=== PATIENT | female | born 1960 | race Caucasian/White ===

== ENCOUNTER 2019-06-13 11:58 | Day surgery (SDC) | payer BC ==
[~2019-06-13 11:58] MED LIST: Buffered Lidocaine 1% SYRIN* 1 ML/SYRINGE INTRADERM ONE; Dexamethasone IV* 4 MG/ML 1 ML (4 MG) IV SLOW PU ONE; Famotidine IV* 10 MG/ML 2 ML (20 mg) IV ONE; Lactated Ringers 1000 ML Bag* 1,000 ML IV SCH
[2019-06-13] MEDS ORDERED: Famotidine IV* 10 MG/ML 2 ML (20 mg) ONE (12:24)
[2019-06-13] MEDS ORDERED: Dexamethasone IV* 4 MG/ML 1 ML (4 MG) ONE (12:24)
[2019-06-13] MEDS ORDERED: Midazolam* 1 MG/ML 5 ML VIAL (5 MG) ONE (14:16)
[2019-06-13] MEDS ORDERED: Propofol* 10 MG/ML 20 ML BTL ONE ×2 (14:16→15:22)
[2019-06-13] MEDS ORDERED: Lidocaine 2% PF * 5 ML VIAL ONE (14:16)
[2019-06-13] MEDS ORDERED: fentaNYL* 50 MCG/ML 2 ML VIAL (100 MCG VIAL) ONE (14:16)
[2019-06-13] MEDS ORDERED: fentaNYL* 50 MCG/ML 2 ML VIAL (100 MCG VIAL) IV PRN (14:48)
[2019-06-13] MEDS ORDERED: Ondansetron INJ* 2 MG/ML VIAL IV PRN (14:48)
[2019-06-13] MEDS ORDERED: Acetaminophen TAB* 325 MG PO PRN (14:48)
[2019-06-13] MEDS ORDERED: oxyCODONE/Acetamin 5/325 MG* TAB PO PRN (14:48)
[2019-06-13] MEDS ORDERED: Naloxone* 0.4 MG/ML 1 ML VIAL IV PRN (14:48)
[2019-06-13] MEDS ORDERED: HYDROcodone/ACETAMIN 5-325 MG* 1 TAB PO PRN (14:48)
[2019-06-13 16:50] VITALS: BP 155/98
--- NOTE | 2019-06-13 21:43 | PRO ---
CC: Juhi Fernandes NP; Dony Watkins MD * DATE OF PROCEDURE: 06/13/19 - [facility] PROCEDURE: EGD with biopsy. REFERRING PROVIDERS: Juhi Fernandes NP and Dony Watkins MD INDICATIONS: The patient is obese and is seeing Dr. Watkins to discuss obesity surgery. She reports occasional GERD symptoms once a week or so. Denies any other symptoms. Uses famotidine as needed. MEDICATIONS GIVEN: By Anesthesia. DESCRIPTION OF PROCEDURE: Full disclosure of risks was reviewed with the patient as detailed on the consent form. The patient was placed in the left lateral decubitus position and monitored with continuous pulse oximetry, capnography, interval blood pressure monitoring, and direct observation. A bite -block was placed between the patient's teeth. An adult gastroscope was then inserted into the patient's mouth and advanced down the esophagus, into the stomach and into the distal duodenum. Findings and interventions are described below. FINDINGS: Esophagus was a tubular structure with evidence of moderate severity esophagitis occurring at the Z-line and in the distal esophagus. At the GE junction, there were several erosions versus ulcers. There was evidence of esophagitis extending up in the scattered fashion to approximately mid esophagus. The scope was then advanced into the stomach. Stomach was examined in the forward and retroflex views. There were several gastric erosions as well as at least one small clean based ulcer in the antrum. Biopsy was obtained for CLOtest. Scope was then advanced into the duodenum to at least the third portion. Duodenal mucosa was unremarkable in appearance. Scope was then withdrawn from the patient. The patient tolerated the procedure well and was recovered in the GI recovery area. IMPRESSION: 1. Complete upper endoscopy to distal duodenum. 2. Moderate severity esophagitis. 3. Gastric erosions and at least one small clean based gastric ulcer. FOLLOWUP: 1. Await CLOtest. 2. Avoid NSAIDs. 3. Start omeprazole 20 mg twice daily. 4. Recommend repeat EGD in 2 months to reassess esophagitis and gastric ulcer. Thank you very much for this referral. [id number]/[facility] #: [id number] [facility]
== END 2019-06-13 16:45 | disposition home or self-care (01) ==
LOC: OR 11:58
PROVIDERS: ATTEND Internal Medicine Gastroenterology
DX: Z01.818 Encounter for other preprocedural examination (principal); E66.01 Morbid (severe) obesity due to excess calories; K25.9 Gastric ulcer, unspecified as acute or chronic, without hemorrhage or perforation; K20.9 Esophagitis, unspecified; Z68.44 Body mass index [BMI] 60.0-69.9, adult; K21.9 Gastro-esophageal reflux disease without esophagitis; I10 Essential (primary) hypertension; G47.33 Obstructive sleep apnea (adult) (pediatric); D51.9 Vitamin B12 deficiency anemia, unspecified
CPT/HCPCS: 87077; J1100; J2250; J2704; J3010

== ENCOUNTER → 2019-08-29 11:17 | Day surgery (SDC) | payer BC ==
[~2019-08-29 11:17] MED LIST changes: +Acetaminophen TAB* 325 MG PO PRN; -Dexamethasone IV* 4 MG/ML 1 ML (4 MG) IV SLOW PU ONE; +DiMENhydriNATE IV* 50 MG/ML VIAL IV PUSH PRN; +Famotidine IV* 10 MG/ML 2 ML (20 mg) ONE; +Lidocaine 2% PF * 5 ML VIAL ONE; +Midazolam* 1 MG/ML 10 ML VIAL (10 MG) ONE; +Naloxone* 0.4 MG/ML 1 ML VIAL IV PRN; +Propofol* 500 MG/50 ML BTL ONE
[2019-08-29 15:52] VITALS: BP 142/93
--- NOTE | 2019-08-29 21:33 | PRO ---
CC: Juhi Fernandes NP; Dr. Watkins * PROCEDURE REPORT: DATE OF PROCEDURE: 08/29/19 PROCEDURE: EGD with biopsy. REFERRING PROVIDERS: Juhi Fernandes NP and Dr. Watkins. INDICATION: The patient underwent an EGD in late May 2019 for pre-bariatric screening. EGD demonstrated [id number] esophagitis and gastric ulcer. The patient was on naproxen at that time. She has since largely discontinued the naproxen and was started on omeprazole. She was instructed to use Omeprazole twice daily, although she often will use once daily as she forgets the second dose. She remains asymptomatic. MEDICATIONS: Medications given by Anesthesia. DESCRIPTION OF PROCEDURE: Full disclosure of risks was reviewed with the patient as detailed on the consent form. The patient was placed in the left lateral decubitus position and monitored with continuous pulse oximetry, capnography, interval blood pressure monitoring, and direct observation. A bite block was placed between the patient's teeth. An adult gastroscope was then inserted into the patient's mouth and advanced down the esophagus, into the stomach, and into the distal duodenum. Findings and interventions are described below. FINDINGS: Esophagus was a tubular structure without rings or strictures. The GE junction occurred at approximately 37 cm. There was evidence of persistent esophagitis with several erosions along the GE junction. Biopsies were obtained from the GE junction. The scope was then advanced into the stomach. Stomach was examined in the forward and retroflexed views. In the gastric antrum, there were multiple small antral erosions. No ulcer. Biopsies were obtained for histologic evaluation. The scope was then advanced into the duodenum to at least the third portion. Duodenal mucosa was unremarkable in appearance. The scope was then withdrawn from the patient. The patient tolerated the procedure well and was recovered in the GI recovery area. IMPRESSION: 1. Complete upper endoscopy to distal duodenum. 2. Improved but persistent mild esophagitis with several erosions at the GE junction. 3. Multiple small gastric antral erosions. FOLLOWUP: 1. Await pathology. 2. Increase to omeprazole 40 mg twice daily with the plan to stay on high dose for 2 months before considering decreasing to omeprazole 40 mg daily. Patient's symptoms do not appear to be a reliable indicator of her reflux activity. 3. Continue to avoid or minimize NSAID use. Thank you very much for this referral. [id number]/[facility] #: [id number] [facility]
== END | disposition home or self-care (01) ==
LOC: OR 11:17
PROVIDERS: ATTEND Internal Medicine Gastroenterology
DX: K21.0 Gastro-esophageal reflux disease with esophagitis (principal); Z87.11 Personal history of peptic ulcer disease; E66.9 Obesity, unspecified; I10 Essential (primary) hypertension; M19.90 Unspecified osteoarthritis, unspecified site; G47.33 Obstructive sleep apnea (adult) (pediatric)
CPT/HCPCS: 88305; 88342; J2250; J2704